=== PATIENT | female | born 1965 | race Caucasian/White ===

== ENCOUNTER 2022-05-14 06:40 | Outpatient (CLI) | payer OTHER, SELFPAY | END 2022-05-14 06:41 | disposition home or self-care (01) | LOC: INJ CL 06:44 | PROVIDERS: Visit Provider Family Medicine | DX: M54.16 Radiculopathy, lumbar region (principal); M51.36 Other intervertebral disc degeneration, lumbar region | CPT/HCPCS: 64483; J0702; Q9966 ==

== ENCOUNTER 2022-10-04 06:50 | Outpatient (CLI) | payer OTHER, SELFPAY | END 2022-10-04 06:51 | disposition home or self-care (01) | LOC: INJ CL 06:51 | PROVIDERS: Visit Provider Family Medicine | DX: M51.36 Other intervertebral disc degeneration, lumbar region (principal); M54.16 Radiculopathy, lumbar region | CPT/HCPCS: 64483; J1100; Q9966 ==